=== PATIENT | female | born 1995 ===

== ENCOUNTER → 2023-08-09 | Outpatient (CLI) | payer OTHER ==
[2023-08-09 14:36] LABS: Basophils # (auto) 0.1 10 ^3/uL (0-0.2); Basophils % (auto) 0.6 % (0.0-2.0); Eosinophils # (auto) 0.1 10 ^3/uL (0-0.8); Eosinophils % (auto) 0.6 % (0.0-7.0); Hematocrit 41.7 % (36.0-46.0); Hemoglobin 13.9 g/dL (12.2-16.2); Lymphocytes # (auto) 3.6 10 ^3/uL (0.4-5.4); Lymphocytes % (auto) 38.1 % (10.0-50.0); Mean Corpuscular Hgb Conc. 33.4 g/dL (32.0-36.0); Mean Corpuscular Volume 95.7 fL (80.0-100.0); Monocytes # (auto) 0.6 10 ^3/uL (0-1.3); Monocytes % (auto) 6.3 % (0.0-12.0); Neutrophils # (auto) 5.1 10 ^3/uL (1.6-8.6); Neutrophils % (auto) 54.4 % (37.0-80.0); Nucleated Red Blood Cells % 0.1 %; Red Blood Cells 4.36 10^6/uL (4.0-5.20); Red Cell Distribution Width 12.9 % (11.8-14.3); White Blood Cell 9.4 10^3/uL (4.4-10.8)
[2023-08-09 15:13] LABS: Alanine Aminotransferase 11 U/L (7-40); Alkaline Phosphatase 69 U/L (46-116); Anion Gap 8 (5-15); BUN/Creatinine Ratio 9.4 (10.0-20.0); Blood Urea Nitrogen 8 mg/dL (9-23); Calcium 9.6 mg/dL (8.5-10.1); Carbon Dioxide 25 mmol/L (20-30); Chloride 107 mmol/L (98-107); Glucose 82 mg/dL (74-106); Potassium 3.8 mmol/L (3.5-5.1); Sodium 140 mmol/L (136-145)
[2023-08-09 15:14] LABS: CRP High Sensitivity 0.43 mg/dL (<1.0)
[2023-08-09 15:15] LABS: Albumin 4.7 g/dL (3.2-4.8); Aspartate Aminotransferase 18 U/L (13-40)
[2023-08-09 15:16] LABS: Bilirubin, Total 0.3 mg/dL (0.2-1.0); Total Protein 7.7 g/dL (5.7-8.2)
[2023-08-09 15:17] LABS: Thyroid Stimulating Hormone 2.59 uIU/mL (0.55-4.78)
[2023-08-09 16:15] LABS: Erythrocyte Sedimentation Rate 6 mm/hr (0-20)
[2023-08-10 08:06] LABS: Cancer Antigen (CA) 125 7.8 U/mL (0.0-38.1)
[2023-08-10 10:07] LABS: Hepatitis B Core Total Antibod Negative (Negative)
== END | disposition home or self-care (01) ==
LOC: LAB 14:08
PROVIDERS: ATTEND Internal Medicine
DX: N83.209 Unspecified ovarian cyst, unspecified side (principal); R59.0 Localized enlarged lymph nodes
CPT/HCPCS: 36415; 80053; 83615; 84439; 84443; 85025; 85652; 86141; 86304; 86705; 86706; 86708; 86709; 86803; 87340

== ENCOUNTER → 2024-01-27 | Outpatient (CLI) | payer OTHER | END | disposition home or self-care (01) | LOC: LAB 06:46 | PROVIDERS: ATTEND Internal Medicine | DX: R93.89 Abnormal findings on diagnostic imaging of other specified body structures (principal) | CPT/HCPCS: 36415; 82565; 84520 ==